=== PATIENT | female | born 1960 | race Caucasian/White ===

== ENCOUNTER 2016-12-31 14:05 | Observation (INO) | payer BC, MEDICAID ==
[2016-12-31] MEDS ORDERED: Bisacodyl 10 MG Supp RECTAL ONE (15:00)
[2016-12-31] MEDS: Nicotine 21 MG/24 Hr Patch TRDERM SCH (16:05)
[2016-12-31] MEDS: Albuterol/Ipratropium 3.0-0.5 MG/3 ML Neb Soln NEB SCH ×2 (16:06→21:50)
[2016-12-31] MEDS: Metoclopramide 10 MG/2 ML SDV IVPUSH SCH ×2 (16:06→21:51)
[2016-12-31] MEDS: Levofloxacin/Dextrose 5%-Water 100 ML IV SCH (16:06)
[2016-12-31] MEDS: Dextrose 5%-0.45% NaCl 1,000 ML IV SCH (17:15)
[2016-12-31] MEDS: Levofloxacin/Dextrose 5%-Water 50 ML IV SCH (17:39)
[2016-12-31] MEDS: Cyclobenzaprine 10 MG Tab PO PRN ×2 (17:42→21:58)
[2016-12-31] MEDS: Ibuprofen 200 MG Tab PO PRN (21:57)
[2017-01-01] MEDS: Albuterol/Ipratropium 3.0-0.5 MG/3 ML Neb Soln NEB SCH ×4 (05:38→21:40)
[2017-01-01] MEDS: Cyclobenzaprine 10 MG Tab PO PRN (05:55)
[2017-01-01] MEDS: Metoclopramide 10 MG/2 ML SDV IVPUSH SCH ×3 (05:55→21:41)
[2017-01-01] MEDS: Dextrose 5%-0.45% NaCl 1,000 ML IV SCH ×2 (05:58→20:49)
[2017-01-01 08:00] LABS: CHLORIDE,CL 103 mmol/L (98-115); SODIUM,NA 138 mmol/L (136-145)
[2017-01-01] MEDS: Nicotine 21 MG/24 Hr Patch TRDERM SCH (08:45)
--- NOTE | 2017-01-01 09:17 | PN ---
01/01/2017 PATIENT NAME: SEEMA LANGE CHIEF COMPLAINT: Does still feel somewhat better, still has some mid-to-left side upper abdominal pain. She is hungry today. Did have a small bowel movement last night about 9. BRIEF HISTORY: This is a 56-year-old female, who was seen by Carlene Little yesterday at the [facility]. She had come in complaining of some upper abdominal pain which had started since last . She noted that she was quite constipated, had not had a bowel movement since the prior Saturday. She took several laxatives, and then she did have a bowel movement a couple days ago; they were small, hard, two of them, and there had been about 5 to 7 loose stools. She reports that she was having some left upper abdominal pain, kind of achy. No fever, chills, or vomiting. On 12/23/2016, the patient did have a fall. She got tangled up with her dog, and she was evaluated in the clinic for left-sided rib pain. She continued with sharp pain with some bruising to the left lower rib, difficulty taking a deep breath. The patient is a current smoker, about one to one and half packs a day. She does have a history of hypertension, hyperlipidemia, and rheumatoid arthritis. She was basically admitted, found to have a pneumonia, x-rays were taken in [facility], and she does have a partial ileus noted. Abdomen, one view, yesterday at [facility] showed mild constipation right colon; gaseous distention of the colon; and a nondistended small bowel most consistent with an ileus. CT of the abdomen and pelvis yesterday showed left base consolidation with adjacent effusion and also indeterminate left adrenal mass. LABORATORY DATA: [facility], dated 12/31/2016, white count 7.1, hemoglobin 15.4, and hematocrit 43.2. Electrolytes normal. Liver functions normal. REVIEW OF SYSTEMS: VITAL SIGNS: Temperature 98, blood pressure 127/76, heart rate 70, O2 sats 93% on room air, and respiratory rate 18. CONSTITUTIONAL: Negative for any fevers or chills. RESPIRATORY: Positive for cough. No shortness of breath. CV: No chest pain. GI: No longer abdominal distention, however, mild abdominal pain, left-to-mid upper quadrant. Less constipation today. She is hungry. GENITOURINARY: She does have some frequency of urination, negative for dysuria. MUSCULOSKELETAL: Left-sided rib pain with bruising. PHYSICAL EXAMINATION: CV: Regular rate and rhythm. LUNGS: Does have some crackles, left lower base. Positive CVA tenderness, left side. ABDOMEN: Less distention today. Bowel tones are decreased. She does have some tenderness left upper quadrant with some mild guarding. PSYCHIATRIC: Somewhat tearful knowing she has to stay today, likely worried about her dog. PRIMARY IMPRESSION AND PLAN: 1. Small-bowel ileus, continue n.p.o., some progress, will continue with Reglan, may advance her diet slowly today. She is nondistended, no nausea, so no need for an NG tube at this time. We will continue current rate, monitor potassium and fluid level status. Right now, she is euvolemic. Blood pressure is adequate. Mean arterial pressure is good, likely nonoperable case, unknown etiology, possible pneumonia related. 2. Left lower lobe pneumonia. White count normal. Neutrophils are normal. Continue on Levaquin. Incentive spirometer. She is well oxygenated, well hydrated. 3. Left adrenal mass. This will have to be surveilled, will most likely need an adrenal mass CT protocol or MRI. 4. Tobacco dependency, continue with nicotine replacement therapy. 5. Hypertension, continue with Toprol and diltiazem. Blood pressure is what is adequate, we will monitor for any signs of sepsis. 6. Hyperlipidemia, currently controlled on Lipitor. 7. Rheumatoid arthritis, on Plaquenil. OVERALL PLAN: Hopefully, we can advance her diet today. Continue with maintenance fluids. Continue with n.p.o. right now. Continue with Reglan, IV antibiotics, DuoNebs, add incentive spirometer. Monitor potassium and other electrolytes. /[id number]/MODL
[2017-01-01] MEDS ORDERED: Diltiazem 180 MG Cap.CD PO SCH (12:00)
[2017-01-01] MEDS ORDERED: Metoprolol Succinate 25 MG Tab.ER PO SCH (12:00)
[2017-01-01] MEDS: Ibuprofen 200 MG Tab PO PRN (12:27)
[2017-01-01] MEDS ORDERED: Bisacodyl 10 MG Supp RECTAL PRN (14:20)
[2017-01-01] MEDS: Levofloxacin/Dextrose 5%-Water 100 ML IV SCH (17:14)
[2017-01-01] MEDS: Levofloxacin/Dextrose 5%-Water 50 ML IV SCH (18:18)
[2017-01-01] MEDS: Cyclobenzaprine 5 MG Tab PO PRN (21:49)
[2017-01-02] MEDS: Ibuprofen 200 MG Tab PO PRN (01:06)
[2017-01-02] MEDS: Albuterol/Ipratropium 3.0-0.5 MG/3 ML Neb Soln NEB SCH ×2 (05:21→10:49)
[2017-01-02] MEDS: Metoclopramide 10 MG/2 ML SDV IVPUSH SCH (06:09)
[2017-01-02] MEDS: Cyclobenzaprine 5 MG Tab PO PRN (06:09)
[2017-01-02 07:21] VITALS: BP 124/79
[2017-01-02] MEDS: Nicotine 21 MG/24 Hr Patch TRDERM SCH (08:28)
--- NOTE | 2017-01-03 08:22 | DISCH ---
FINAL DIAGNOSES: 1. Small-bowel ileus, much improved, resolved. 2. Constipation, improving. 3. Left lower lobe pneumonia, clinically improving. 4. Left adrenal mass. Abdominal CT ordered. 5. Tobacco dependency. She has been counseled on this. 6. Hyperlipidemia. Controlled on Lipitor. 7. Hypertension. Controlled on Toprol and diltiazem. 8. Rheumatoid arthritis. She is on Plaquenil. HISTORY: This 56-year-old female who was seen initially by Carlene Little NP at [facility] complaining of some upper abdominal pain that started for about 5 days prior. She noted she was quite constipated and not had a bowel movement since the prior Saturday. She took several laxatives and she did have a bowel movement few days prior. However, they were hard. She reports she was having some left upper lobe abdominal pain, sort of achy. No chills, fevers. She also sustained a fall on 12/23. She got tangled up with her dog. She continued to have a sharp pain with some bruising left lower rib. She had fell on her left rib, difficult to take a deep breath likely contributing to her pneumonia. However, she does smoke 1.5 pack cigarettes a day. She did have an abdominal view at the [facility] which showed mild constipation in right colon, also a nondistended small bowel, most consistent with ileus. Subsequent CT of the abdomen and pelvis did show left base consolidation with adjacent effusion. Also, we noticed an incidental indeterminate left adrenal mass which will need more surveillance and CT. LABS: In the [facility], she did have white count 7.1, hemoglobin 15.4. Electrolytes were normal. Along with it, liver functions were normal. Labs in the hospital, sodium 138, potassium 3.9. BUN 9, creatinine 0.48. White count 4.2. Vital signs on discharge, blood pressure 124/79, temperature 97.6, heart rate 80, O2 sats 93%. Physical exam on discharge, lungs much improved. Slight rhonchus, right lower lobe. CV, regular rate and rhythm. GI, nontender, nondistended. Hypotonic bowel tones. Some bruising on her left side of her chest wall. HOSPITAL COURSE: Hospital course went well. She was treated with an appropriate antibiotics during hospital stay. She did well on her incentive spirometer. Nicotine patch was applied. We did make her n.p.o. She was quite hungry. We advanced her diet the previous day. She tolerated that well with a full liquid. She started having more bowel tones. She walked around the coon quite well. She was treated for constipation. She will be discharged on MiraLax and Colace along with high-fiber diet. Not need any NG tube as she was never nauseated. We did notice a left adrenal mass that was incidental on abdominal CT. She will need adrenal mass protocol. MEDICATIONS: On discharge, 1. MiraLax 17 g daily. 2. Colace 100 mg p.o. daily. 3. Milk of magnesia 30 mL one p.o. daily. 4. Azithromycin for community-acquired pneumonia. Right now, the patient does strongly desire to be discharged. I do not feel any reason why she should stay. She looks very well, much improved; however, she will have to get abdominal CT next Saturday. I do want her drinking any contrast right now due to her history of ileus. RECOMMENDATIONS AT FOLLOWUP: She will need abdominal CT. Order has been placed in, adrenal protocol. I have discussed this with her, likely benign. However, we will need further imaging. Counseled her on tobacco cessation. She is not ready to quit right now. She is to report any worsening abdominal pain, vomiting, abdominal distention, fever. We will advance her diet as tolerated. I will see her back next week. MEDICAL DECISION MAKIN minutes was spent on this discharge planning and process. /[id number]/MODL
== END 2017-01-02 11:15 | disposition home or self-care (01) ==
LOC: KA.MS 14:14
PROVIDERS: ADMIT Nurse Practitioner Family; ATTEND Nurse Practitioner Family
DX: K56.69 Other intestinal obstruction (principal); K59.00 Constipation, unspecified; J18.8 Other pneumonia, unspecified organism; E27.9 Disorder of adrenal gland, unspecified; F17.200 Nicotine dependence, unspecified, uncomplicated; I10 Essential (primary) hypertension; E78.5 Hyperlipidemia, unspecified; M06.9 Rheumatoid arthritis, unspecified; Z79.2 Long term (current) use of antibiotics; Z79.899 Other long term (current) drug therapy; Z79.82 Long term (current) use of aspirin; Z90.710 Acquired absence of both cervix and uterus; Z98.890 Other specified postprocedural states; F17.210 Nicotine dependence, cigarettes, uncomplicated
CPT/HCPCS: 36415; 74177; 80048; 85025; 94640; A9270; J1956; J2765; J7042; 96365; 96366; 96375; 96376; G0378; G0379; Q9967

== ENCOUNTER 2021-01-21 10:00 | Emergency (ER) | payer BC, MEDICAID ==
[2021-01-21 10:35] VITALS: BP 135/80; PULSE 78
--- NOTE | 2021-01-21 10:55 | EDM.PDOC ---
ED HPI GENERAL MEDICAL PROBLEM - General Chief Complaint: General Stated Complaint: RIGHT LEG PAIN Time Seen by Provider: 01/21/21 10:30 Source of Information: Reports: Patient History Limitations: Reports: No Limitations - History of Present Illness INITIAL COMMENTS - FREE TEXT/NARRATIVE: 60 YO WF PRESENTS TO ER WITH 3 WEEK HISTORY OF RIGHT LOWER EXTREMITY REDNESS, SWELLING AND PAIN. PT WAS SEEN IN CLINIC ON 01/11/2021 AND HAD BLOOD WORK, LE VENOUS DOPPLER AND PUT ON KEFLEX 500MG FOR 7 DAYS WITHOUT IMPROVEMENT. ON REVIEW OF LABS AT CLINIC CBC/ESR/CRP AND VENOUS DOPPLER WERE ALL NORMAL. PT REPORTS SHE FINISHED HER MEDICATION 1 WEEK AGO AND IT NEVER IMPROVED. PT DENIES FEVER/CHILLS, NO NAUSEA/VOMITING. PT REPORTS LEG IS PAINFUL WHEN AMBULATING WITHOUT ANY NO KNOWN INJURY. PT WITH PMH OF RAYNAUD, SJOGRENS AND TOBACCO USE. Duration: Week(s): (3) Location: Reports: Lower Extremity, Right Quality: Reports: Ache Severity: Moderate Improves with: Reports: Rest Worsens with: Reports: Movement Associated Symptoms: Reports: No Other Symptoms. Denies: Fever/Chills, Nausea/Vomiting, Shortness of Breath Right Leg Pain Score (Numeric/FACES): 9 - Related Data Allergies Allergy/AdvReac Type Severity Reaction Status Date / Time lisinopril Allergy Hives Verified 01/21/21 10:35 Home Meds: Home Meds RX: Calcium Carbonate/Vitamin D3 [Calcium 500-Vit D3 200 Caplet] 500 mg PO 1200 01/20/15 [History] RX: Cetirizine [ZyrTEC] 10 mg PO 1200 PRN 01/20/15 [History] RX: Fish Oil/Allison-3 Fatty Acids [Fish Oil 1,000 MG] 2,000 mg PO 1200 01/20/15 [History] RX: Hydroxychloroquine Sulfate [Plaquenil] 200 mg PO 1200 01/20/15 [History] RX: Ibuprofen 200 mg PO Q4H PRN 01/20/15 [History] RX: Metoprolol Succinate [Toprol XL] 37.5 mg PO 1200 01/20/15 [History] RX: Multivitamin [Multiple Vitamins] 1 tab PO 1200 01/20/15 [History] RX: atorvaSTATin [Lipitor] 10 mg PO 119901/20/15 [History] RX: dilTIAZem HCl [Diltiazem 24Hr ER (Cd)] 180 mg PO 1200 01/20/15 [History] RX: Aspirin [Adult Low Dose Aspirin EC] 81 mg PO 1200 12/31/16 [History] RX: Cyclobenzaprine HCl 5 mg PO TID PRN 12/31/16 [History] Docusate Sodium [Colace] 100 mg PO DAILY #30 cap 01/02/17 [Rx] polyethylene glycoL 3350 [Miralax] 17 gm PO DAILY #30 powd.pack 01/02/17 [Rx] traMADol [Ultram] 50 mg PO Q4H PRN #15 tab 01/21/21 [Rx] Past Medical History Cardiovascular History: Reports: Hypertension, Other (See Below) Other Cardiovascular History: Raynaud's Respiratory History: Reports: Bronchitis, Recurrent Gastrointestinal History: Reports: Other (See Below) Other Gastrointestinal History: more heart burn lately Other PARTS COUNTER REPRESENTATIVE History: D & C x2 Musculoskeletal History: Reports: RA Endocrine/Metabolic History: Reports: Other (See Below) Other Endocrine/Metabolic History: Lupus,sjogren's - Infectious Disease History Infectious Disease History: Reports: Chicken Pox - Past Surgical History Female Surgical History: Reports: Hysterectomy Social & Family History - Family History Cardiac: Reports: Heart Failure - Tobacco Use Tobacco Use Status *Q: Current Every Day Tobacco User Years of Tobacco use: 45 Packs/Tins Daily: 1 Used Tobacco, but Quit: No - Caffeine Use Caffeine Use: Reports: Coffee - Alcohol Use Days Per Week of Alcohol Use: 5 Number of Drinks Per Day: 3 Total Drinks Per Week: 15 - Recreational Drug Use Recreational Drug Use: No ED ROS GENERAL - Review of Systems Review Of Systems: See Below Constitutional: Reports: No Symptoms HEENT: Reports: No Symptoms Respiratory: Reports: No Symptoms Cardiovascular: Reports: No Symptoms Endocrine: Reports: No Symptoms GI/Abdominal: Reports: No Symptoms : Reports: No Symptoms Musculoskeletal: Reports: Leg Pain Skin: Reports: Erythema Neurological: Reports: No Symptoms Psychiatric: Reports: No Symptoms Hematologic/Lymphatic: Reports: No Symptoms Immunologic: Reports: No Symptoms ED EXAM, GENERAL - Physical Exam Exam: See Below Exam Limited By: No Limitations General Appearance: Alert, WD/WN, No Apparent Distress Neck: Normal Inspection, Supple, Non-Tender, Full Range of Motion Respiratory/Chest: No Respiratory Distress, Lungs Clear, Normal Breath Sounds, No Accessory Muscle Use, Chest Non-Tender Cardiovascular: Normal Peripheral Pulses, Regular Rate, Rhythm, No Edema, No Gallop, No JVD, No Murmur, No Rub GI/Abdominal: Normal Bowel Sounds, Soft, Non-Tender, No Organomegaly, No Distention, No Abnormal Bruit, No Mass Back Exam: Normal Inspection, Full Range of Motion, NT Extremities: Pedal Edema, Leg Pain, Increased Warmth, Redness Neurological: Alert, Oriented, CN II-XII Intact, Normal Cognition, Normal Gait, Normal Reflexes, No Motor/Sensory Deficits Psychiatric: Normal Affect, Normal Mood Skin Exam: Warm, Dry, Intact, Normal Color, No Rash Lymphatic: No Adenopathy Course - Vital Signs Last Recorded V/S: Last Vital Signs Temp 96.5 F L 01/21/21 10:10 Pulse 78 01/21/21 10:10 Resp 20 01/21/21 10:10 BP 135/80 01/21/21 10:10 Pulse Ox 96 01/21/21 10:10 - Orders/Labs/Meds Orders: Active Orders 24 hr Category Date Time Status Peripheral IV Care [RC] . DIRECTED Care 01/21/21 11:06 Active CBC WITH AUTO DIFF [HEME] Stat Lab 01/21/21 10:25 Received ESR [SEDIMENTATION RATE AUTO] [HEME] Stat Lab 01/21/21 10:25 Received Sodium Chloride 0.9% [Saline Flush] Med 01/21/21 11:06 Active 10 ml FLUSH Q8HR PRN Peripheral IV Insertion Adult [OM.PC] Routine Oth 01/21/21 11:06 Ordered Medication Orders Sodium Chloride (Sodium Chloride 0.9% 10 Ml Syringe) 10 ml FLUSH Q8HR PRN PRN Reason: keep vein open Last Admin: 01/21/21 11:56 Dose: 10 ml Documented by: ALISSA Labs: Laboratory Tests 01/21/21 Range/Units 10:25 Sodium 137 (136-145) mmol/L Potassium 3.7 (3.5-5.1) mmol/L Chloride 97 L (98-107) mmol/L Carbon Dioxide 28.5 (21.0-32.0) mmol/L Anion Gap 15.2 H (5-15) mmol/L BUN 11 (7-18) mg/dL Creatinine 0.56 (0.51-1.17) mg/dL Est Cr Clr Drug Dosing 89.95 mL/min Estimated GFR (MDRD) > 60 mL/min Glucose 106 (70-140) mg/dL Calcium 9.0 (8.7-10.3) mg/dL C-Reactive Protein 0.5 (0.0-0.9) mg/dL Meds: Medications Generic Name Dose Route Start Last Admin Trade Name Freq PRN Reason Stop Dose Admin Sodium Chloride 10 ml 01/21/21 11:06 01/21/21 11:56 Sodium Chloride 0.9% 10 Ml Syringe FLUSH 10 ml Q8HR PRN Administration keep vein open Discontinued Medications Generic Name Dose Route Start Last Admin Trade Name Freq PRN Reason Stop Dose Admin Ceftriaxone Sodium 1 gm 01/21/21 11:52 01/21/21 11:56 Ceftriaxone 1 Gm Vial IVPUSH 01/21/21 11:53 1 gm ONETIME ONE Administration Departure - Departure Time of Disposition: 11:59 Disposition: Home, Self-Care 01 Condition: Fair Clinical Impression: Right leg swelling - Discharge Information Prescriptions: traMADol [Ultram] 50 mg PO Q4H PRN #15 tab PRN Reason: Pain Referrals: Joby Comer, [employer] [Primary Care Provider] - Forms: ED Department Discharge Additional Instructions: 1. DISCHARGE WITH FOLLOW UP TO [facility] FOR LOWER EXTREMITY ULTRASOUND TO EXCLUDE DVT 2. ULTRAM 50MG Q4-6HRS PRN PAIN 3. RETURN TO ER FOR WORSENING SYMPTOMS 4. FOLLOW UP IN CLINIC NEXT WEEK FOR FURTHER EVALUATION AND TREAMENT Sepsis Event Note (ED) - Evaluation Sepsis Screening Result: No Definite Risk - Focused Exam Vital Signs: Vital Signs Temp Pulse Resp BP Pulse Ox 01/21/21 10:10 96.5 F L 78 20 135/80 96 - My Orders Last 24 Hours: My Active Orders 01/21/21 10:25 CBC WITH AUTO DIFF [HEME] Stat ESR [SEDIMENTATION RATE AUTO] [HEME] Stat 01/21/21 11:06 Peripheral IV Care [RC] . DIRECTED Sodium Chloride 0.9% [Saline Flush] 10 ml FLUSH Q8HR PRN Peripheral IV Insertion Adult [OM.PC] Routine - Assessment/Plan Last 24 Hours: My Active Orders 01/21/21 10:25 CBC WITH AUTO DIFF [HEME] Stat ESR [SEDIMENTATION RATE AUTO] [HEME] Stat 01/21/21 11:06 Peripheral IV Care [RC] . DIRECTED Sodium Chloride 0.9% [Saline Flush] 10 ml FLUSH Q8HR PRN Peripheral IV Insertion Adult [OM.PC] Routine Assessment:: 1. RIGHT LOWER EXTREMITY PAIN AND SWELLING- CELLULITIS VS VASCULITIS VS DVT Plan: DISCUSSED CASE WITH THERESE JIN- CBC WAS ORDERED BUT ANALYZER IS DOWN-SENT OUT FOR ESR/CBC- CRP NORMAL; CANNOT EXCLUDE DVT AT THIS TIME. INSTRUCTED PATIENT TO GO TO [facility] FOR FURTHER IMAGING. PT UNDERSTANDS CONCERNS FOR DVT AND WITHOUT TREATMENT PE AND WILL FOLLOW UP IN CLINIC EARLY NEXT WEEK. 1. DISCHARGE WITH FOLLOW UP TO [facility] FOR LOWER EXTREMITY ULTRASOUND TO EXCLUDE DVT 2. ULTRAM 50MG Q4-6HRS PRN PAIN 3. RETURN TO ER FOR WORSENING SYMPTOMS 4. FOLLOW UP IN CLINIC NEXT WEEK FOR FURTHER EVALUATION AND TREAMENT
[2021-01-21 11:05] LABS: ANION GAP 15.2 mmol/L (5-15); CHLORIDE,CL 97 mmol/L (98-107); SODIUM,NA 137 mmol/L (136-145)
[2021-01-21] MEDS: Sodium Chloride 0.9% 10 ML Syringe FLUSH PRN (11:56)
[2021-01-21] MEDS: cefTRIAXone 1 GM Vial IVPUSH ONE (11:56)
[2021-01-21] MEDS: traMADol 50 MG Tab PO ONE (12:32)
== END 2021-01-21 12:30 | disposition home or self-care (01) ==
LOC: KA.ED 10:00
DX: R22.41 Localized swelling, mass and lump, right lower limb (principal); I10 Essential (primary) hypertension; M06.9 Rheumatoid arthritis, unspecified; Z88.8 Allergy status to other drugs, medicaments and biological substances; Z79.899 Other long term (current) drug therapy; Z79.82 Long term (current) use of aspirin
CPT/HCPCS: 80048; 85025; 86140; 96374; 99283; J0696; A9270-GY

== ENCOUNTER 2021-01-28 13:25 | Emergency (ER) | payer BC, MEDICAID, SELFPAY ==
--- NOTE | 2021-01-28 13:52 | EDM.PDOC ---
ED HPI GENERAL MEDICAL PROBLEM - General Chief Complaint: General Stated Complaint: RIGHT LOWER EXTREMITY PAIN Time Seen by Provider: 01/28/21 13:43 Source of Information: Reports: Patient, Old Records - History of Present Illness INITIAL COMMENTS - FREE TEXT/NARRATIVE: Geovanna, 60-year-old female, presents to the emergency department today with ongoing issues of right lower extremity. Today she states pain as if the bone is going to explode when she is weightbearing. Ice and elevation are helping but stating medications do not take away the pain completely, only allowing her to rest. She has been seen in clinic visits as well as ER here and [place] undergoing ultrasound as well as blood work evaluation all being benign in their findings. Recent follow-up in the clinic was thought to be possible flareup attributed to Raynaud's syndrome. Interestingly I find no discussion or treatment appropriation recommendation for smoking cessation despite multiple microvascular and attributed diagnosis that are crucially worsened with tobacco dependence. She states today that the pain has worsened despite no injury or reinjury and feels that she needs to be placed on a steroid for her flareup as well as her multiple disease issues. Onset: Unknown/Unsure, Other (Onset 5 to 6 weeks ago with a small puncture wound thought to be cellulitis to the right anterior cardenas successfully treated with ongoing intermittent swelling mid cardenas distally.) Duration: Week(s):, Chronic Location: Reports: Lower Extremity, Right Quality: Reports: Burning, Pressure, Same as Previous Episode, Sharp, Stabbing Severity: Severe Improves with: Reports: Cold Therapy Worsens with: Reports: Movement Associated Symptoms: Reports: No Other Symptoms Treatments JINRIKISHA DRIVER: Reports: Other (see below) (All current medications on medication list.) Right Lower Leg Pain Score (Numeric/FACES): 10 - Related Data Allergies Allergy/AdvReac Type Severity Reaction Status Date / Time lisinopril Allergy Hives Verified 01/28/21 13:39 Home Meds: Home Meds Calcium Carbonate/Vitamin D3 [Calcium 500-Vit D3 200 Caplet] 500 mg PO 1200 01/20/15 [History] Cetirizine [ZyrTEC] 10 mg PO 1200 PRN 01/20/15 [History] Fish Oil/[place]untley-3 Fatty Acids [Fish Oil 1,000 MG] 2,000 mg PO 1200 01/20/15 [History] Hydroxychloroquine Sulfate [Plaquenil] 200 mg PO 1200 01/20/15 [History] Ibuprofen 200 - 400 mg PO Q4H PRN 01/20/15 [History] Metoprolol Succinate [Toprol XL] 37.5 mg PO 1200 01/20/15 [History] Multivitamin [Multiple Vitamins] 1 tab PO 1200 01/20/15 [History] atorvaSTATin [Lipitor] 10 mg PO 1200 01/20/15 [History] dilTIAZem HCl [Diltiazem 24Hr ER (Cd)] 180 mg PO 1200 01/20/15 [History] Aspirin [Adult Low Dose Aspirin EC] 81 mg PO 1200 12/31/16 [History] Docusate Sodium [Colace] 100 mg PO DAILY #30 cap 01/02/17 [Rx] Albuterol Sulfate [Albuterol Sulfate HFA] 2 spray INH Q2H PRN 01/28/21 [History] Cinnamon Bark [Cinnamon] 500 mg PO BEDTIME 01/28/21 [History] Escitalopram [Lexapro] 10 mg PO DAILY 01/28/21 [History] Fluticasone Propionate [Flonase] 2 spray NS BID 01/28/21 [History] amLODIPine [Norvasc] 5 mg PO DAILY 01/28/21 [History] carvediloL [Coreg] 12.5 mg PO BIDMEALS 01/28/21 [History] traMADol [Ultram] 50 mg PO Q6H PRN 01/28/21 [History] Past Medical History HEENT History: Reports: Cataract Cardiovascular History: Reports: High Cholesterol, Hypertension, Other (See Below) (Sjogrens's disease, Raynauds Syndrome, Buerger's disease, Thoracic Aortic athrosclerosis.) Other Cardiovascular History: Raynaud's Respiratory History: Reports: Bronchitis, Recurrent, Other (See Below) (Em physema) Gastrointestinal History: Reports: Other (See Below) Other Gastrointestinal History: more heart burn lately Genitourinary History: Reports: Renal Calculus Other INSIDE WIRER History: D & C x2 Musculoskeletal History: Reports: Osteoarthritis, RA Psychiatric History: Reports: Anxiety Endocrine/Metabolic History: Reports: Other (See Below) Other Endocrine/Metabolic History: Lupus,sjogren's - Infectious Disease History Infectious Disease History: Reports: Chicken Pox - Past Surgical History Female Surgical History: Reports: Hysterectomy Social & Family History - Family History Cardiac: Reports: Heart Failure - Tobacco Use Tobacco Use Status *Q: Current Every Day Tobacco User - Caffeine Use Caffeine Use: Reports: Coffee ED ROS GENERAL - Review of Systems Review Of Systems: Comprehensive ROS is negative, except as noted in HPI. ED EXAM, GENERAL - Physical Exam Exam: See Below Free Text/Narrative:: Alert, oriented, with complaint of discomfort to the right lower extremity. HEENT is negative to discharge or deformity, there is no cyanosis nor pallor noted. She is able to speak in full sentences since complaints with details over the numerous visits she has undergone since the incidental "nail poking her cardenas" over 1 month to 5 weeks ago. Detailed history of all of the diagnoses that are confirmed in her [facility] chart with her requesting that she should be placed on prednisone. I discussed with her that although prednisone is sometimes used with treatment of some the multiple diagnosis that she has, I do not show recent use nor that she is on a basal, low dose daily regimen for any of the aforementioned diagnosis including her emphysema. Neck is soft supple with no lymphadenopathy. Thorax is mildly diminished at bases but otherwise I do not appreciate any wheezes nor crackles. Cardiac is regular, I do not appreciate a murmur. Radial pulses correlate with heart rate. I do not appreciate any cyanosis or ecchymosis to the upper extremities. Lower extremities complaint of pain on the right with +1 to +2 edema from the distal cardenas through the ankle to the dorsum of the foot with slight darkness to the toes but not cyanotic. Capillary refill is less than 3 seconds. On the left lower extremity is negative for any cyanosis with capillary refill less than 3 seconds. There is no tenderness to the left extremity noted on exam. When performing Homans test it is grossly negative but she states motion again makes it "feel like the bone is going to explode". Course - Vital Signs Last Recorded V/S: Last Vital Signs Temp 97.6 F 01/28/21 13:27 Pulse 75 01/28/21 14:30 Resp 16 01/28/21 14:30 BP 98/46 L 01/28/21 14:30 Pulse Ox 93 L 01/28/21 14:30 - Orders/Labs/Meds Labs: Laboratory Tests 01/28/21 01/28/21 01/28/21 Range/Units 14:00 14:00 14:00 WBC 7.60 (5.00-10.00) 10^3/uL RBC 3.92 (3.80-5.50) 10^6/uL Hgb 14.2 (12.0-16.0) g/dL Hct 41.5 (37.0-47.0) % MCV 105.9 H (82.0-92.0) fL MCH 36.2 H (27.0-31.0) pg MCHC 34.2 (32.0-36.0) g/dL RDW 12.5 (11.5-14.5) % Plt Count 259 (150-400) 10^3/uL MPV 8.1 (7.4-10.4) fL Immature Gran % (Auto) 0.5 (0.0-5.0) % Neut % (Auto) 61.9 (50.0-70.0) % Lymph % (Auto) 24.6 (20.0-40.0) % [place]undy % (Auto) 10.8 H (2.0-8.0) % Eos % (Auto) 1.8 (1.0-3.0) % Baso % (Auto) 0.4 (0.0-1.0) % Neut # (Auto) 4.70 (2.50-7.00) 10^3/uL Lymph # (Auto) 1.87 (1.00-4.00) 10^3/uL [place]undy # (Auto) 0.82 H (0.10-0.80) 10^3/uL Eos # (Auto) 0.14 (0.10-0.30) 10^3/uL Baso # (Auto) 0.03 (0.00-0.10) 10^3/uL Immature Gran # (Auto) 0.04 (0.00-0.50) 10^3/uL D-Dimer, Quantitative 970 H (<400) ng/mL Sodium 136 (136-145) mmol/L Potassium 3.3 L (3.5-5.1) mmol/L Chloride 97 L (98-107) mmol/L Carbon Dioxide 28.5 (21.0-32.0) mmol/L Anion Gap 13.8 (5-15) mmol/L BUN 10 (7-18) mg/dL Creatinine 0.59 (0.51-1.17) mg/dL Est Cr Clr Drug Dosing 81.78 mL/min Estimated GFR (MDRD) > 60 mL/min Glucose 123 (70-140) mg/dL Calcium 9.2 (8.7-10.3) mg/dL Total Bilirubin 0.1 L (0.2-1.0) mg/dL AST 33 (15-37) U/L ALT 47 (14-63) U/L Alkaline Phosphatase 89 (46-116) U/L C-Reactive Protein 1.4 H (0.0-0.9) mg/dL Total Protein 7.7 (6.4-8.2) g/dL Albumin 3.59 (3.40-5.00) g/dL Departure - Departure Time of Disposition: 14:47 Disposition: [facility] Condition: Fair Clinical Impression: Right leg swelling, Elevated d-dimer, CRP elevated, Hypokalemia, Smoking greater than 40 pack years - Discharge Information *PRESCRIPTION DRUG MONITORING PROGRAM REVIEWED*: Not Applicable *COPY OF PRESCRIPTION DRUG MONITORING REPORT IN PATIENT ERIC: Not Applicable Referrals: Joby Comer NP [Nurse Practitioner] - Forms: ED Department Discharge, Interfacility Transfer EMTALA Additional Instructions: You need to go straight to the emergency department at [facility] in [place]. [address] [place] [address] off [address]. Do not eat or drink anything prior to the arrival letter in the event of procedure needs to be performed beyond the ultrasound. You need to strongly consider smoking cessation as it is only impacting in a worsening scenario of your chronic diagnosis. Sepsis Event Note (ED) - Evaluation Sepsis Screening Result: No Definite Risk - Focused Exam Vital Signs: Vital Signs Temp Pulse Resp BP Pulse Ox 01/28/21 14:30 75 16 98/46 L 93 L 01/28/21 14:00 77 17 105/65 93 L 01/28/21 13:27 97.6 F 87 18 110/63 93 L - Problem List & Annotations (1) Smoking greater than 40 pack years SNOMED Code(s): 36201107 Code(s): F17.210 - NICOTINE DEPENDENCE, CIGARETTES, UNCOMPLICATED Status: Acute Priority: High (2) Right leg swelling SNOMED Code(s): 704437899 Code(s): M79.89 - OTHER SPECIFIED SOFT TISSUE DISORDERS Status: Acute Priority: High (3) Elevated d-dimer SNOMED Code(s): 056482001 Code(s): R79.89 - OTHER SPECIFIED ABNORMAL FINDINGS OF BLOOD CHEMISTRY Status: Acute Priority: High (4) CRP elevated SNOMED Code(s): 957318498186875 Code(s): R79.82 - ELEVATED C-REACTIVE PROTEIN (CRP) Status: Acute Priority: High (5) Hypokalemia SNOMED Code(s): 59981847 Code(s): E87.6 - HYPOKALEMIA Status: Acute Priority: Medium - Problem List Review Problem List Initiated/Reviewed/Updated: Yes - Assessment/Plan Plan: Contact [facility] Dr. Brock excepting to the emergency department for further evaluation including ultrasound of the right lower extremity.
[2021-01-28 14:27] LABS: ANION GAP 13.8 mmol/L (5-15); CHLORIDE,CL 97 mmol/L (98-107); SODIUM,NA 136 mmol/L (136-145)
[2021-01-28 14:44] VITALS: BP 98/46; PULSE 75
== END 2021-01-28 15:00 ==
LOC: KA.ED 13:25
DX: M79.89 Other specified soft tissue disorders (principal); E87.6 Hypokalemia; F17.210 Nicotine dependence, cigarettes, uncomplicated; R79.89 Other specified abnormal findings of blood chemistry; R79.82 Elevated C-reactive protein (CRP); E78.00 Pure hypercholesterolemia, unspecified; I10 Essential (primary) hypertension; Z88.8 Allergy status to other drugs, medicaments and biological substances; Z79.899 Other long term (current) drug therapy
CPT/HCPCS: 36415; 80053; 85025; 85379; 86140; 99284

== ENCOUNTER 2022-11-06 08:07 | Day surgery (SDC) | payer MEDICAID ==
[~2022-11-06 08:07] MED LIST: Sodium Chloride 0.9% 10 ML Syringe FLUSH PRN
[2022-11-06] MEDS ORDERED: Propofol 200 MG/20 ML SDV IV ONE (08:08)
[2022-11-06] MEDS: Lactated Ringers 1,000 ML IV SCH ×2 (08:29→09:27)
[2022-11-06] MEDS ORDERED: Bacitracin/Neomycin/Polymyxin B Oint 0.9 GM U/D Packet ONE (08:44)
[2022-11-06] MEDS ORDERED: Bupivacaine 0.5% 30 ML SDV ONE (08:44)
[2022-11-06] MEDS ORDERED: Midazolam 1 MG/ML 2 ML SDV ONE (08:59)
[2022-11-06] MEDS ORDERED: Lidocaine 0.5% 50 ML SDV ONE (08:59)
[2022-11-06] MEDS ORDERED: Propofol 200 MG/20 ML SDV ONE ×2 (08:59→09:54)
[2022-11-06] MEDS ORDERED: Lactated Ringers 1,000 ML ONE (09:33)
[2022-11-06] MEDS ORDERED: Bupivacaine 0.5% 30 ML SDV INFILT ONE (09:37)
[2022-11-06] MEDS ORDERED: Bupivacaine 0.5%/EPINEPHrine 1:200,000 50 ML MDV ONE (09:42)
[2022-11-06] MEDS ORDERED: Bupivacaine 0.5%/EPINEPHrine 1:200,000 50 ML MDV INFILT ONE (09:42)
[2022-11-06 11:47] VITALS: BP 126/71; PULSE 62
== END 2022-11-06 12:34 | disposition home or self-care (01) ==
LOC: KA.SDS 08:07
PROVIDERS: ATTEND Surgery
DX: G56.01 Carpal tunnel syndrome, right upper limb (principal); I10 Essential (primary) hypertension; I70.0 Atherosclerosis of aorta; E78.2 Mixed hyperlipidemia; M06.89 Other specified rheumatoid arthritis, multiple sites; M15.9 Polyosteoarthritis, unspecified; F41.1 Generalized anxiety disorder
CPT/HCPCS: J2250; J2704; J3490; J7120